=== PATIENT | male | born 1995 | race Caucasian/White ===

== ENCOUNTER 2024-04-02 15:13 | Emergency (ER) | payer BC, SELFPAY ==
[2024-04-02 15:14] VITALS: BP 128/84
--- NOTE | 2024-04-02 16:34 | ED.GENMED ---
History of Present Illness
General
Chief Complaint: Skin Surface Trauma
Source: patient
Time Seen by Provider: 04/02/24 15:57
History of Present Illness
History of Present Illness:
28-year-old male presents to the emergency room complaining of suffering a laceration to his left lower leg. Patient states he had a pocket knife of some sort in a pair of pants that he was folding. The knife fell out and caused a laceration to
his left blas. No other injuries.
Past History
Past History
ED Past Medical History: None
ED Past Surgical History: None
Social History
Tobacco: Non-smoker
Phy Exam
Physical Exam
Physical Exam:
General: Awake, Alert, Oriented X3. No acute distress.
Vitals: unremarkable
Head: Atraumatic
Eyes: Pupils equal, EOMI
Neuro: Nonfocal
Skin: Warm, dry, no rash
Extremities: pulses equal b/l, no edema, 2.5 cm laceration noted left anterior blas located just a few centimeters above the ankle. Minimal oozing from the wound.
Course
Orders/Labs/Results
Orders:
Orders
04/02/24 16:40
Tetanus/Diphth/Acelpertussis [Adacel] 0.5 ml IM .ONCE ONE
Vital Signs
Initial and Last Documented VS:
Initial Vital Signs
Temp Pulse Resp BP Pulse Ox
98.2 F 88 16 128/84 99
04/02/24 15:14 04/02/24 15:14 04/02/24 15:14 04/02/24 15:14 04/02/24 15:14
Last Documented Vital Signs
Temp Pulse Resp BP Pulse Ox
98.2 F 66 16 114/76 99
04/02/24 15:14 04/02/24 16:55 04/02/24 15:14 04/02/24 16:55 04/02/24 15:14
Procedures
Laceration Closure
Left Lower Anterior Leg:
Status of Wound: clean
Size of Wound in cm: 2.5
Description of Wound Edges: sharp
Preparation: cleaned with saline
Anesthesia: 1% Lidocaine with epi
Revision/Debridement: routine- no revision
Wound exploration: explored to base- no FB
Type of Closure: single layer closure
Skin Closure Material: 4-0 nylon
Number of sutures: 5
MDM/Problems Addressed
Differential Diagnosis Includes:
Laceration, neurovascular injury
MDM/Problems Addressed:
There is visible cutaneous laceration. Sutured. Sutures should be removed in 7 days. Tetanus updated
*Critical Care Note
Total Time (30-74mins, 75-104mins- exclusive of procedures): Not Applicable
ED Attending Note
-
Portions of this chart may have been created with voice recognition software.� Occasional wrong word or��sound alike� substitutions may have occurred due to the inherent limitations of voice recognition software.
Discharge Plan
Departure
Patient Disposition: Home (Routine Discharge)
Date of Disposition: 04/02/24
Time of Disposition: 16:42
Patient with high blood pressure during this ER visit?: No
Condition: Good
Discharge Problem:
Laceration of left lower extremity
Instructions: Laceration Repair With Stitches (DC)
Referrals:
Raven Jones CRNP [Family Provider] -
Activity Restrictions/Additional Instructions:
Stitches should be removed in 7 days.
Interventions
Interventions:
*Risk Screen - Suicide Last Done: 04/02/24 15:14
*General Assessment Last Done: 04/02/24 15:14
*Neglect/Abuse Screening Last Done: 04/02/24 15:14
*Nursing Disposition Last Done: 04/02/24 16:55
ED-Skin Assessment Last Done: 04/02/24 15:42
Discharge Date and Time
Discharge Date/Time: 04/02/24 16:56
Print Language: [id number]
[2024-04-02] MEDS: ADACEL 0.5 ML IM (16:45)
[2024-04-02 16:54] VITALS: BP 114/76
[2024-04-02 16:55] VITALS: BP 114/76
== END 2024-04-02 16:56 | disposition home or self-care (01) ==
LOC: EMR 15:13
PROVIDERS: EMERGENCY PHYSICIAN Emergency Medicine; FAMILY PHYSICIAN Nurse Practitioner
DX: S81.812A Laceration without foreign body, left lower leg, initial encounter (principal); Z23 Encounter for immunization; W26.0XXA Contact with knife, initial encounter
CPT/HCPCS: 99282; 12001; 90471; 90715